=== PATIENT | female | born 1960 | race Caucasian/White ===

== ENCOUNTER 2025-09-23 16:08 | Emergency (ER) | payer OTHER, MEDICAID ==
[~2025-09-23] VITALS: Ht 162.6 cm; Wt 65.0 kg
[2025-09-23 16:09] VITALS: O2SAT 98
[2025-09-23] MEDS: IBUPROFEN 400MG TABLET PO NR (17:58)
[2025-09-23] MEDS: LIDOCAINE 5% PATCH TOP SCH (19:53)
[2025-09-23] MEDS: CYCLOBENZAPRINE 10MG TABLET PO ONE (19:55)
[2025-09-23] MEDS: KETOROLAC 15MG/ML VIAL IM ONE (20:02)
[2025-09-24] MEDS ORDERED: ACET-2708 MT (00:31)
[2025-09-24] MEDS ORDERED: IBUP-2028 MT (00:31)
[2025-09-24 01:25] VITALS: BP 129/68; PULSE 78; RESP 18; TEMP 37; O2SAT 99
[2025-09-24] MEDS ORDERED: IOHEXOL-300 100 ML BOTTLE ONE (02:37)
== END 2025-09-24 01:25 | disposition home or self-care (01) ==
LOC: ER 16:08
DX: S32.048A Other fracture of fourth lumbar vertebra, initial encounter for closed fracture (principal); S00.03XA Contusion of scalp, initial encounter; I10 Essential (primary) hypertension; E78.00 Pure hypercholesterolemia, unspecified; V43.52XA Car driver injured in collision with other type car in traffic accident, initial encounter; Y93.89 Activity, other specified; Y92.410 Unspecified street and highway as the place of occurrence of the external cause; Y99.8 Other external cause status
CPT/HCPCS: 99285; 70450; 71045; 72100; 71260; 74177; 96372; J1885; Q9967